=== PATIENT | male | born 1960 | race Caucasian/White ===

== ENCOUNTER 2024-05-03 20:06 | Emergency (ER) | payer OTHER ==
[2024-05-03 20:28] VITALS: BP 109/68; PULSE 78; RESP 22; TEMP 98.1; BMI 28.3
[2024-05-03] MEDS ORDERED: ONDANSETRON 4 MG/2 ML VIAL ONE (21:09)
[2024-05-03] MEDS: SODIUM CHLORIDE 0.9% 500 ML INFUS.BAG IV ONE (22:09)
[2024-05-03] MEDS: ONDANSETRON 4 MG/2 ML VIAL IVPUSH ONE (22:09)
[2024-05-03 22:19] LABS: BASO % 0.6 % (0-2.0); EOS % 0.5 % (0-4.5); HEMATOCRIT 47.2 % (35.4-49); HEMOGLOBIN 15.4 GM/dL (11.7-16.9); LYMPH % 4.8 % (8-40); MCH 27.5 pg (25.7-33.7); MCHC 32.7 g/dl (32.0-35.9); MEAN CELL VOLUME 84.2 fl (80-96); MEAN PLT VOLUME 7.1 fl (7.5-11.1); MONO % 3.5 % (3.8-10.2); NEUT % 90.6 % (42.8-82.8); PLATELET COUNT 222 10^3/uL (134-434); RBC 5.61 M/mm3 (4.00-5.60); RDW 14.5 % (11.9-15.9); WHITE BLOOD COUNT 8.4 K/mm3 (4.0-10.0)
[2024-05-03 22:37] LABS: POTASSIUM 4.9 mmol/L (3.5-5.1)
[2024-05-03 22:39] LABS: ALBUMIN 4.1 g/dl (3.4-5.0); BLOOD UREA NITROGEN 14.7 mg/dL (7-18); CALCIUM 9.1 mg/dL (8.5-10.1)
[2024-05-03 22:42] LABS: ANISOCYTOSIS 1+; CREATININE 1.1 mg/dL (0.55-1.3); MACROCYTOSIS 0
[2024-05-03 22:44] LABS: BILIRUBIN,TOTAL 0.9 mg/dL (0.2-1); TOT PROT 7.7 g/dl (6.4-8.2)
== END 2024-05-03 23:18 | disposition home or self-care (01) ==
LOC: JER 20:06
PROC: 3E033GC Introduction of Other Therapeutic Substance into Peripheral Vein, Percutaneous Approach (ICD-10-PCS; principal; 2024-05-03)
DX: R41.0 Disorientation, unspecified (principal); R11.2 Nausea with vomiting, unspecified; R55 Syncope and collapse; R07.89 Other chest pain; R19.7 Diarrhea, unspecified; R10.84 Generalized abdominal pain; T38.3X5A Adverse effect of insulin and oral hypoglycemic [antidiabetic] drugs, initial encounter
CPT/HCPCS: 36415; 70450-TC; 72125-TC; 80053; 82962; 84484; 85025; 93005; 93010; 96374; 99285-25